=== PATIENT | male | born 1990 ===

== ENCOUNTER 2022-04-29 16:11 | Emergency (ER) | payer BC ==
[2022-04-29 16:52] VITALS: BP 141/109; PULSE 96
[2022-04-29] MEDS: Lidocaine 1% 5 ML VIAL INJECT ONE (18:31)
== END 2022-04-29 17:27 | disposition home or self-care (01) ==
LOC: LB.ED 16:11
DX: S61.212A Laceration without foreign body of right middle finger without damage to nail, initial encounter (principal); W23.1XXA Caught, crushed, jammed, or pinched between stationary objects, initial encounter
CPT/HCPCS: 12001; 73140-F7; 99283-25